=== PATIENT | female | born 1960 | race Hispanic/Latino ===

== ENCOUNTER 2023-10-09 18:14 | Inpatient (IN) | payer BC ==
[~2023-10-09] VITALS: Ht 152.4 cm; Wt 72.6 kg
[2023-10-09 19:08] LABS: BASOPHILS % 0.2 % (0.0-1.0); EOSINOPHILS # (AUTO) 0.1 (0.0-0.4); EOSINOPHILS % 1.6 % (0.0-6.0); LYMPHOCYTES # (AUTO) 1.1 (1.0-3.2); LYMPHOCYTES % 20.5 % (18.0-39.1); MEAN CORPUSCULAR HEMOGLOBIN 20.6 pg (28-32); MEAN CORPUSCULAR HGB CONC 26.5 g/dL (31-35); MEAN CORPUSCULAR VOLUME 77.8 fL (81-99); MONOCYTES # (AUTO) 0.5 (0.2-0.8); MONOCYTES % 8.6 % (4.4-11.3); NEUTROPHILS # (AUTO) 3.8 (2.1-6.9); NEUTROPHILS % 68.4 % (38.7-80.0); PLATELET COUNT 343 x10e3/uL (140-360); RED BLOOD COUNT 2.52 x10e6/uL (3.6-5.1); RED CELL DISTRIBUTION WIDTH 15.6 % (11.7-14.4); WHITE BLOOD COUNT 5.55 x10e3/uL (4.8-10.8)
[2023-10-09 19:12] LABS: HEMATOCRIT 19.6 % (34.2-44.1); HEMOGLOBIN 5.2 g/dL (12.0-16.0)
[2023-10-09 19:15] LABS: INR 0.95; PROTHROMBIN TIME 13.4 seconds (11.9-14.5)
[2023-10-09 19:16] LABS: PARTIAL THROMBOPLASTIN TIME 24.3 seconds (23.8-35.5)
[2023-10-09 19:24] LABS: ALBUMIN 3.8 g/dL (3.5-5.0); ALBUMIN/GLOBULIN RATIO 1.2 (0.8-2.0); BILIRUBIN,TOTAL 0.4 mg/dL (0.2-1.2); CALCIUM 8.8 mg/dL (8.4-10.2); CREATININE, SERUM 0.79 mg/dL (0.57-1.11); TOTAL PROTEIN 6.9 g/dL (6.5-8.1)
[2023-10-09 19:47] LABS: FERRITIN 30.27 ng/mL (4.63-204.00)
[2023-10-09 20:54] VITALS: PULSE 89; RESP 16; O2SAT 96
[2023-10-09] MEDS ORDERED: BENZTROPINE MESYLATE 1 MG/ML VIAL IV ONE (21:00)
[2023-10-09] MEDS ORDERED: SODIUM CHLORIDE FLUSH 10 ML SYR INJ PRN (21:15)
[2023-10-09] MEDS ORDERED: HYDRALAZINE HCL 20 MG/ML VIAL ONE (22:26)
[2023-10-09] MEDS: HYDRALAZINE HCL 20 MG/ML VIAL IV ONE (22:28)
[2023-10-09] MEDS: ACETAMINOPHEN 325 MG TAB PO STA (22:28)
[2023-10-09] MEDS: Pantoprazole IV 80 MG in SODIUM CHLORIDE 0.9% 100 ML IV SCH (22:29)
[2023-10-09 23:45] VITALS: BP 143/74; PULSE 83; RESP 18; TEMP 98.2; O2SAT 100
[2023-10-10] VITALS (16 sets, daily range): BP systolic 131–171; BP diastolic 63–94; PULSE 72–94; RESP 16–21; TEMP 97.5–98.4; O2SAT 94–100
[2023-10-10] MEDS ORDERED: PROTONIX20 MG PO (02:36)
[2023-10-10] MEDS ORDERED: BENICAR20 MG PO (02:36)
[2023-10-10] MEDS ORDERED: CETIRIZINE HCL10 MG PO (02:36)
[2023-10-10] MEDS: SODIUM CHLORIDE 0.9% 250ML 250 ML IV ONE ×2 (04:13→08:03)
[2023-10-10] MEDS: PANTOPRAZOLE IV SCH (06:15)
[2023-10-10] MEDS: SODIUM CHLORIDE 0.9% IV SCH (06:15)
[2023-10-10] MEDS: ACETAMINOPHEN 1000 MG/100 ML IV PRN (06:28)
[2023-10-10] MEDS ORDERED: PANTOPRAZOLE IV SCH (06:30)
[2023-10-10] MEDS ORDERED: SODIUM CHLORIDE 0.9% IV SCH (06:30)
[2023-10-10] MEDS: SODIUM CHLORIDE 0.9% 250ML 250 ML ONE (08:40)
[2023-10-10] MEDS: HYDRALAZINE HCL 20 MG/ML VIAL IV PRN (10:04)
[2023-10-10] MEDS: DIPHENHYDRAMINE HCL INJ 50 MG/ML VIAL IV ONE (10:04)
[2023-10-10] MEDS: SODIUM FERRIC GLUCONATE COMPLX 125 MG in SODIUM CHLORIDE 0.9% 100 ML IV SCH (11:25)
[2023-10-10 12:41] LABS: HEMATOCRIT 30.6 % (34.2-44.1); HEMOGLOBIN 9.5 g/dL (12.0-16.0)
[2023-10-10] MEDS ORDERED: FENTANYL CITRATE/PF 100MCG/2 ML INJ ONE (13:41)
[2023-10-10] MEDS ORDERED: LIDOCAINE HCL 2% LOCAL INJ 5 ML SDV VIAL INJ ONE (14:25)
[2023-10-10] MEDS ORDERED: PROPOFOL IV EMULSION 10 MG/ML 20 ML VIAL ONE (14:25)
[2023-10-11 00:07] VITALS: BP 171/80; PULSE 80; RESP 21; TEMP 98.1; O2SAT 98
[2023-10-11 00:15] VITALS: BP 129/64; PULSE 74; RESP 16; TEMP 98; O2SAT 99
[2023-10-11 04:20] VITALS: BP 170/83; PULSE 83; RESP 15; TEMP 98; O2SAT 100
[2023-10-11 05:30] LABS: BASOPHILS % 0.6 % (0.0-1.0); EOSINOPHILS # (AUTO) 0.1 (0.0-0.4); EOSINOPHILS % 2.5 % (0.0-6.0); HEMATOCRIT 29.7 % (34.2-44.1); HEMOGLOBIN 9.1 g/dL (12.0-16.0); LYMPHOCYTES % 19.4 % (18.0-39.1); MEAN CORPUSCULAR HEMOGLOBIN 24.4 pg (28-32); MEAN CORPUSCULAR HGB CONC 30.6 g/dL (31-35); MEAN CORPUSCULAR VOLUME 79.6 fL (81-99); MONOCYTES # (AUTO) 0.6 (0.2-0.8); MONOCYTES % 11.2 % (4.4-11.3); NEUTROPHILS # (AUTO) 3.4 (2.1-6.9); NEUTROPHILS % 65.3 % (38.7-80.0); PLATELET COUNT 246 x10e3/uL (140-360); RED BLOOD COUNT 3.73 x10e6/uL (3.6-5.1); RED CELL DISTRIBUTION WIDTH 16.8 % (11.7-14.4)
[2023-10-11 06:22] LABS: ALBUMIN 3.2 g/dL (3.5-5.0); ALBUMIN/GLOBULIN RATIO 1.1 (0.8-2.0); ANION GAP 13.5 mmol/L (8-16); BILIRUBIN,TOTAL 0.8 mg/dL (0.2-1.2); CALCIUM 8.2 mg/dL (8.4-10.2); CREATININE, SERUM 0.8 mg/dL (0.57-1.11); POTASSIUM 3.5 mmol/L (3.5-5.1); TOTAL PROTEIN 6.2 g/dL (6.5-8.1)
[2023-10-11] MEDS ORDERED: ACETAMINOPHEN 325 MG TAB PO PRN (08:30)
[2023-10-11 08:37] VITALS: BP 163/80; PULSE 70; RESP 20; TEMP 98.3; O2SAT 98
[2023-10-11 08:42] VITALS: BP 163/80; PULSE 70; RESP 20; TEMP 98.3; O2SAT 98
[2023-10-11] MEDS: ACETAMINOPHEN 325 MG TAB PO ONE (09:20)
[2023-10-11] MEDS ORDERED: FEROSUL325 MG PO (10:16)
[2023-10-11] MEDS ORDERED: PANTOPRAZOLE SO40 MG PO (10:16)
[2023-10-11] MEDS ORDERED: CARAFATE1 GM PO (10:16)
[2023-10-11 12:28] VITALS: BP 179/82; PULSE 70; RESP 20; TEMP 98.2; O2SAT 98
== END 2023-10-11 13:20 | disposition home or self-care (01) | DRG 377 ==
LOC: ER 19:00 → ERHOLD 21:14 → MED/SURG3 23:07 → OBSVTOIN 10-10 14:17
PROVIDERS: ADMIT Family Medicine Adult Medicine; ATTEND Family Medicine Adult Medicine
PROC: 0DB78ZX Excision of Stomach, Pylorus, Via Natural or Artificial Opening Endoscopic, Diagnostic (ICD-10-PCS; 2023-10-10)
PROC: 30233N1 Transfusion of Nonautologous Red Blood Cells into Peripheral Vein, Percutaneous Approach (ICD-10-PCS; 2023-10-10)
PROC: 0DB68ZX Excision of Stomach, Via Natural or Artificial Opening Endoscopic, Diagnostic (ICD-10-PCS; principal; 2023-10-10 13:28)
DX: K25.4 Chronic or unspecified gastric ulcer with hemorrhage (principal); K21.01 Gastro-esophageal reflux disease with esophagitis, with bleeding; K29.71 Gastritis, unspecified, with bleeding; I10 Essential (primary) hypertension; D50.9 Iron deficiency anemia, unspecified; K44.9 Diaphragmatic hernia without obstruction or gangrene; K31.7 Polyp of stomach and duodenum; Z11.52 Encounter for screening for COVID-19
CPT/HCPCS: 36415; 43239; 71045; 80053; 82607; 82728; 82746; 83540; 84466; 85014; 85018; 85025; 85610; 85730; 86850; 86900; 86920; 88305; 88342; 94799; 99284; G0378; J0360; J1200; J2001; J2916; J7050; P9016; U0002